=== PATIENT | male | born 1940 | race Hispanic/Latino ===

== ENCOUNTER → 2018-08-05 | Day surgery (SDC) | payer MEDICARE ==
[~2018-08-05] MED LIST: LIDOCAINE HCL 1% MDV 50ML VIAL ONE; SODIUM BICARB 50MEQ 50ML VIAL ONE
[2018-08-05 10:19] LABS: INR 1.04 (0.85-1.15); PARTIAL THROMBOPLASTIN TIME 29.4 SEC (26.3-35.5); PROTHROMBIN TIME 10.9 SEC (9.6-11.6)
--- NOTE | 2018-08-05 13:55 | NUR ---
MBSS COMPLETE. TRACE SILENT ASPIRATION WITH THIN LIQUIDS, SEVERE POOLING AND RESIDUE WITH ALL THICK TEXTURES. RECOMMEND NPO, PEG WITH REPEAT MBSS WHEN Pt'S STRENGTH HAS IMPROVED. PATIENT INFORMATION: Pt IS A 78 Y.O. MALE REFERRED FOR AN MBSS SECONDARY TO HISTORY OF DYSPHAGIA. PT ALERT AND COOPERATIVE DURING THE EVALUATION. PT IS CURRENTLY AT A LOCAL [facility]. Pt SEEN WITH TRACHEOSTOMY IN PLACE ON ROOM AIR WITH PMV DURING THE MBSS. Pt ADMITTED TO [facility] TO ACUTE HYPOXIC RESPIRATORY FAILURE, PNEUMONIA WITH ESBL E.COLI. 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 RESULTING IN SHALLOW NON-TRANSIENT PENETRATION WITH THIN LIQUIDS VIA TSP, SILENT TRACE ASPIRATION WITH THIN LIQUIDS VIA CUP SIP, AND SEVERE POOLING AND RESIDUE WITH PUREED, PUDDING AND NECTAR-THICK LIQUIDS (CAN BE CLEARED WITH LIQUID WASH OF THIN LIQUIDS, HOWEVER, Pt WITH ASPIRATION WITH THIN LIQUIDS). TRIALS: 1. TSP PUREED: RESIDUE IN VALLECULAE AND PYRIFORM SINUS WITH POOLING ABOVE UES(UNABLE TO CLEAR) 2. TSP THIN LIQUIDS: SHALLOW NON-TRANSIENT PENETRATION (SILENT) 3. CUP SIP THIN LIQUIDS: SILENT TRACE ASPIRATION 4. TSP PUDDING: RESIDUE IN VALLECULAE AND PYRIFORM SINUS WITH POOLING ABOVE UES(UNABLE TO CLEAR) 5. TSP NECTAR-THICK LIQUIDS: RESIDUE IN VALLECULAE AND PYRIFORM SINUS WITH POOLING ABOVE UES (UNABLE TO CLEAR) RECOMMENDATIONS: 1. NPO, PEG 2. SKILLED SPEECH THERAPY IS RECOMMENDED 3-5XWK 3. REPEAT MBSS WHEN CURRENT STATUS IMPROVED AND Pt IS STRONGER. SPECIMEN TRANSPORTER REVIEWED RECOMMENDATIONS WITH Pt AND . THEY VERBALIZED UNDERSTANDING AND COMPLIANCE WITH RECOMMENDATIONS. G-CODES SWALLOWING: [id number] Addendum: 08/05/18 at 1410 by CALEB RODRIGUEZ, SPT ST Amended: Links added.
== END ==
LOC: CLH 09:44 → EDSTATUS 10:00
PROVIDERS: ATTEND Internal Medicine Critical Care Medicine
DX: Z45.2 Encounter for adjustment and management of vascular access device (principal); E11.22 Type 2 diabetes mellitus with diabetic chronic kidney disease; I12.0 Hypertensive chronic kidney disease with stage 5 chronic kidney disease or end stage renal disease; N18.6 End stage renal disease; Z99.2 Dependence on renal dialysis; J96.01 Acute respiratory failure with hypoxia; N40.0 Benign prostatic hyperplasia without lower urinary tract symptoms; J16.8 Pneumonia due to other specified infectious organisms
CPT/HCPCS: 36415; 36558; 74230; 77001; 85610; 85730; 92611; C1750; C1894; J1644 ×2; J3490 ×2